=== PATIENT | female | born 1970 | race Caucasian/White ===

== ENCOUNTER 2017-04-06 14:43 | Outpatient (CLI) | payer OTHER ==
[2017-04-06 15:37] LABS: BASOPHILS % (AUTO) 0.3 % (0-1); EOSINOPHILS # (AUTO) 0.1 X10'3 (0-0.9); EOSINOPHILS % (AUTO) 1.5 % (0-6); HEMATOCRIT 36.8 % (35.0-45.0); HEMOGLOBIN 13.1 g/dl (12.0-16.0); LYMPHOCYTES # (AUTO) 1.3 X10'3 (1.1-4.8); LYMPHOCYTES % (AUTO) 22.5 % (21-51); MEAN CORPUSCULAR HEMOGLOBIN 33.9 PG (27.0-31.0); MEAN CORPUSCULAR HGB CONC 35.7 % (33.0-36.5); MEAN PLATELET VOLUME 8.4 FL (7.4-10.4); MONOCYTES # (AUTO) 0.3 X10'3 (0-0.9); MONOCYTES % (AUTO) 5.3 % (2-12); NEUTROPHILS # (AUTO) 3.9 X10'3 (1.8-7.7); NEUTROPHILS % (AUTO) 70.4 % (42-75); PLATELET COUNT 153 X10'3 (140-440); RED BLOOD COUNT 3.88 X10'6 (4.20-5.60); RED CELL DISTRIBUTION WIDTH 11.8 % (11.5-14.5); WHITE BLOOD COUNT 5.6 X10'3 (4.5-11.0)
[2017-04-06 15:47] LABS: CLARITY,URINE SLIGHTLY CLOUDY (Clear); COLOR,URINE YELLOW (Yellow); GLUCOSE, URINE NEGATIVE (Neg); KETONES,URINE NEGATIVE (Neg); LEUKOCYTE ESTERASE ,URINE NEGATIVE (Neg); NITRITES, URINE NEGATIVE (Neg); OCCULT BLOOD,URINE NEGATIVE (Neg); PH,URINE 5.5 (4.8-8.0); PROTEIN,URINE NEGATIVE (Neg); UROBILINOGEN,URINE 0.2 E.U/dL (0.2-1.0)
[2017-04-06 15:51] LABS: UA COLLECTION TYPE CLN CATCH MIDSTREAM
[2017-04-06 15:52] LABS: MUCUS STRANDS MODERATE /LPF (Neg); SQUAMOUS EPITHELIAL CELL,UR MODERATE /LPF (FEW)
[2017-04-06 15:53] LABS: BACTERIA,URINE FEW /HPF (Neg); RBC,URINE 0-2 /HPF (0-2); WBC,URINE 0-4 /HPF (0-4)
[2017-04-06 16:02] LABS: ALANINE AMINOTRANSFERASE 24 U/L (12-78); ALBUMIN 3.6 G/DL (3.4-5.0); ALBUMIN/GLOBULIN RATIO 1.2 (1.1-1.5); ALKALINE PHOSPHATASE 48 IU/L (46-116); ANION GAP 6 (8-16); ASPARTATE AMINO TRANSFERASE 19 U/L (10-37); BILIRUBIN,TOTAL 0.6 MG/DL (0.1-1.0); BLOOD UREA NITROGEN 12 MG/DL (7-18); BUN/CREATININE RATIO 17.1 (6.6-38.0); CALCIUM 8.5 MG/DL (8.5-10.1); CHLORIDE 104 MMOL/L (99-107); CHOL/HDL RATIO 3.2 (0.00-4.99); CHOLESTEROL 161 MG/DL (0-200); GLUCOSE 92 MG/DL (70-104); HDL CHOLESTEROL 51 MG/DL (35-60); LDL CHOLESTEROL 99 MG/DL (50-100); POTASSIUM 3.5 MMOL/L (3.5-5.1); SODIUM 139 MMOL/L (135-145); TOTAL PROTEIN 6.7 G/DL (6.4-8.2); TRIGLYCERIDES 98 MG/DL (20-135); eGFR > 90 ML/MIN
[2017-04-09 08:08] LABS: VITAMIN D, 25-HYDROXY 53.2 ng/mL (30.0-100.0)
== END 2017-04-06 23:59 | disposition home or self-care (01) ==
LOC: LAB 14:43
PROVIDERS: ATTEND General Practice
DX: Z79.899 Other long term (current) drug therapy (principal)
CPT/HCPCS: 36415; 80053; 80061; 81001; 82306; 82607; 84443; 85025

== ENCOUNTER 2018-04-13 14:47 | Outpatient (CLI) | payer OTHER ==
[2018-04-13 15:43] LABS: BASOPHILS % (AUTO) 0.1 % (0-1); EOSINOPHILS # (AUTO) 0.1 X10'3 (0-0.9); HEMATOCRIT 39.6 % (35.0-45.0); HEMOGLOBIN 13.7 g/dl (12.0-16.0); LYMPHOCYTES % (AUTO) 19.1 % (21-51); MEAN CORPUSCULAR HEMOGLOBIN 33.7 PG (27.0-31.0); MEAN CORPUSCULAR HGB CONC 34.7 g/dL (33.0-36.5); MEAN CORPUSCULAR VOLUME 97.1 FL (78-98); MEAN PLATELET VOLUME 9.3 FL (7.4-10.4); MONOCYTES # (AUTO) 0.3 X10'3 (0-0.9); MONOCYTES % (AUTO) 5.3 % (2-12); NEUTROPHILS % (AUTO) 74.5 % (42-75); PLATELET COUNT 153 X10'3 (140-440); RED BLOOD COUNT 4.07 X10'6 (4.20-5.60); RED CELL DISTRIBUTION WIDTH 12.8 % (11.5-14.5); WHITE BLOOD COUNT 5.4 X10'3 (4.5-11.0)
[2018-04-13 16:02] LABS: CLARITY,URINE CLEAR (Clear); COLOR,URINE YELLOW (Yellow); GLUCOSE, URINE NEGATIVE (Neg); KETONES,URINE 15 mg/dl (Neg); LEUKOCYTE ESTERASE ,URINE NEGATIVE (Neg); NITRITES, URINE NEGATIVE (Neg); OCCULT BLOOD,URINE NEGATIVE (Neg); PROTEIN,URINE NEGATIVE (Neg); UROBILINOGEN,URINE 0.2 E.U/dL (0.2-1.0)
[2018-04-13 16:04] LABS: UA COLLECTION TYPE NON-SPECIFIED
[2018-04-13 16:08] LABS: ALANINE AMINOTRANSFERASE 26 U/L (12-78); ALBUMIN 3.8 G/DL (3.4-5.0); ALBUMIN/GLOBULIN RATIO 1.2 (1.1-1.5); ALKALINE PHOSPHATASE 43 IU/L (46-116); ANION GAP 8 (8-16); ASPARTATE AMINO TRANSFERASE 22 U/L (10-37); BILIRUBIN,TOTAL 0.7 MG/DL (0.1-1.0); BLOOD UREA NITROGEN 13 MG/DL (7-18); BUN/CREATININE RATIO 17.8 (6.6-38.0); CHLORIDE 102 MMOL/L (99-107); CHOL/HDL RATIO 3.7 (0.00-4.99); CHOLESTEROL 199 MG/DL (0-200); CREATININE 0.73 MG/DL (0.40-0.90); GLUCOSE 90 MG/DL (70-104); HDL CHOLESTEROL 54 MG/DL (35-60); LDL CHOLESTEROL 127 MG/DL (50-100); POTASSIUM 4.1 MMOL/L (3.5-5.1); SODIUM 137 MMOL/L (135-145); TOTAL CARBON DIOXIDE 27.2 MMOL/L (24-32); TOTAL PROTEIN 7.1 G/DL (6.4-8.2); TRIGLYCERIDES 127 MG/DL (20-135); eGFR 86 ML/MIN
[2018-04-16 13:18] LABS: VITAMIN D, 25-HYDROXY 45.2 ng/mL (30.0-100.0)
== END 2018-04-13 23:59 | disposition home or self-care (01) ==
LOC: LAB 14:47
PROVIDERS: ATTEND General Practice
DX: Z79.899 Other long term (current) drug therapy (principal); Z90.710 Acquired absence of both cervix and uterus
CPT/HCPCS: 36415; 80053; 80061; 81003; 82306; 82607; 84443; 85025

== ENCOUNTER 2018-06-27 15:30 | Outpatient (CLI) | payer OTHER | END 2018-06-27 23:59 | disposition home or self-care (01) | LOC: RAD 15:30 | PROVIDERS: ATTEND General Practice | DX: R22.1 Localized swelling, mass and lump, neck (principal); R56.9 Unspecified convulsions; Z90.710 Acquired absence of both cervix and uterus | CPT/HCPCS: 76882 ==

== ENCOUNTER 2018-07-18 13:23 | Outpatient (CLI) | payer OTHER | END 2018-07-18 23:59 | disposition home or self-care (01) | LOC: RAD 13:23 | PROVIDERS: ATTEND General Practice | DX: R22.1 Localized swelling, mass and lump, neck (principal); M54.2 Cervicalgia | CPT/HCPCS: 70543; A9577 ==

== ENCOUNTER → 2018-10-18 | Day surgery (SDC) | payer OTHER ==
[~2018-10-18] VITALS: Ht 165.1 cm; Wt 86.4 kg
[~2018-10-18] MED LIST: IBUP-1985 PO; LIDOcaine Viscous 15ml cup ONE; LORA10TA7 PO; MIDAZolam 5mg/5ml vial ONE; OMEP20CA11 PO; fentaNYL/PF 50MCG/1 ML 2ML syringe ONE
[2018-10-18 09:25] VITALS: BP 121/68
[2018-10-18 09:58] VITALS: BP 101/60
[2018-10-18 10:08] VITALS: BP 112/57
[2018-10-18 10:18] VITALS: BP 108/74
[2018-10-18 10:28] VITALS: BP 110/73
== END | disposition home or self-care (01) ==
LOC: GI LAB 09:19
PROVIDERS: ATTEND Internal Medicine Gastroenterology
DX: K29.70 Gastritis, unspecified, without bleeding (principal); K44.9 Diaphragmatic hernia without obstruction or gangrene; K31.89 Other diseases of stomach and duodenum; Z79.899 Other long term (current) drug therapy
CPT/HCPCS: 43239; J2250; J3010; J7040; 99152; A4620

== ENCOUNTER 2019-03-26 11:30 | Outpatient (CLI) | payer OTHER ==
[~2019-03-26 11:30] MED LIST changes: -LIDOcaine Viscous 15ml cup ONE; -MIDAZolam 5mg/5ml vial ONE; -OMEP20CA11 PO; +OMEP20CA15 PO; -fentaNYL/PF 50MCG/1 ML 2ML syringe ONE
[2019-03-26 12:54] LABS: BASOPHILS % (AUTO) 0.5 % (0-1); EOSINOPHILS % (AUTO) 0.2 % (0-6); HEMATOCRIT 41.3 % (35.0-45.0); HEMOGLOBIN 14.2 g/dl (12.0-16.0); LYMPHOCYTES # (AUTO) 1.3 X10'3 (1.1-4.8); LYMPHOCYTES % (AUTO) 18.1 % (21-51); MEAN CORPUSCULAR HEMOGLOBIN 33.1 PG (27.0-31.0); MEAN CORPUSCULAR HGB CONC 34.4 g/dL (33.0-36.5); MEAN CORPUSCULAR VOLUME 96.2 FL (78-98); MEAN PLATELET VOLUME 9.7 FL (7.4-10.4); MONOCYTES # (AUTO) 0.4 X10'3 (0-0.9); MONOCYTES % (AUTO) 5.7 % (2-12); NEUTROPHILS # (AUTO) 5.6 X10'3 (1.8-7.7); NEUTROPHILS % (AUTO) 75.5 % (42-75); PLATELET COUNT 204 X10'3 (140-440); RED BLOOD COUNT 4.29 X10'6 (4.20-5.60); RED CELL DISTRIBUTION WIDTH 12.5 % (11.5-14.5); WHITE BLOOD COUNT 7.4 X10'3 (4.5-11.0)
[2019-03-26 13:02] LABS: CLARITY,URINE CLEAR (Clear); COLOR,URINE STRAW (Yellow); GLUCOSE, URINE NEGATIVE (Neg); KETONES,URINE NEGATIVE (Neg); LEUKOCYTE ESTERASE ,URINE NEGATIVE (Neg); NITRITES, URINE NEGATIVE (Neg); OCCULT BLOOD,URINE NEGATIVE (Neg); PROTEIN,URINE NEGATIVE (Neg); UROBILINOGEN,URINE 0.2 E.U/dL (0.2-1.0)
[2019-03-26 13:06] LABS: UA COLLECTION TYPE NON-SPECIFIED
[2019-03-26 14:57] LABS: ALANINE AMINOTRANSFERASE 28 U/L (12-78); ALBUMIN/GLOBULIN RATIO 1.1 (1.1-1.5); ALKALINE PHOSPHATASE 55 IU/L (46-116); ANION GAP 12 (8-16); ASPARTATE AMINO TRANSFERASE 22 U/L (10-37); BILIRUBIN,TOTAL 0.8 MG/DL (0.1-1.0); BLOOD UREA NITROGEN 12 MG/DL (7-18); BUN/CREATININE RATIO 14.5 (6.6-38.0); CALCIUM 8.5 MG/DL (8.5-10.1); CHLORIDE 101 MMOL/L (99-107); CHOL/HDL RATIO 3.7 (0.00-4.99); CHOLESTEROL 216 MG/DL (0-200); CREATININE 0.83 MG/DL (0.40-0.90); GLUCOSE 95 MG/DL (70-104); HDL CHOLESTEROL 59 MG/DL (35-60); LDL CHOLESTEROL 141 MG/DL (50-100); POTASSIUM 3.6 MMOL/L (3.5-5.1); SODIUM 137 MMOL/L (135-145); TOTAL CARBON DIOXIDE 24.2 MMOL/L (24-32); TOTAL PROTEIN 7.7 G/DL (6.4-8.2); TRIGLYCERIDES 104 MG/DL (20-135); eGFR 74 ML/MIN
[2019-03-27 05:39] LABS: VITAMIN D, 25-HYDROXY 29.2 ng/mL (30.0-100.0)
== END 2019-03-26 23:59 | disposition home or self-care (01) ==
LOC: RAD 11:30
PROVIDERS: ATTEND General Practice
DX: N83.201 Unspecified ovarian cyst, right side (principal); Z79.899 Other long term (current) drug therapy
CPT/HCPCS: 36415; 76830; 76856; 80053; 80061; 81003; 82306; 82607; 84443; 85025

== ENCOUNTER 2019-07-11 08:50 | Outpatient (CLI) | payer OTHER | END 2019-07-11 23:59 | disposition home or self-care (01) | LOC: RAD 08:50 | PROVIDERS: ATTEND General Practice | DX: N83.201 Unspecified ovarian cyst, right side (principal) | CPT/HCPCS: 76856 ==

== ENCOUNTER → 2019-08-23 | Outpatient (CLI) | payer OTHER | END | disposition home or self-care (01) | LOC: LAB 11:02 | PROVIDERS: ATTEND Specialist | DX: N83.201 Unspecified ovarian cyst, right side (principal) | CPT/HCPCS: 36415; 86304 ==

== ENCOUNTER 2019-10-14 11:02 | Day surgery (SDC) | payer BC ==
[2019-10-09 09:33] LABS: MEAN PLATELET VOLUME 9.3 FL (7.4-10.4); MONOCYTES # (AUTO) 0.2 X10'3 (0-0.9); PRE OP HEMATOCRIT 39.4 % (35.0-45.0); RED BLOOD COUNT 3.96 X10'6 (4.20-5.60)
[2019-10-09 09:35] LABS: BASOPHILS % (AUTO) 0.5 % (0-1); EOSINOPHILS % (AUTO) 0.7 % (0-6); LYMPHOCYTES # (AUTO) 1.1 X10'3 (1.1-4.8); LYMPHOCYTES % (AUTO) 28.3 % (21-51); MEAN CORPUSCULAR HEMOGLOBIN 33.9 PG (27.0-31.0); MEAN CORPUSCULAR HGB CONC 34.1 g/dL (33.0-36.5); MEAN CORPUSCULAR VOLUME 99.4 FL (78-98); MONOCYTES % (AUTO) 5.4 % (2-12); NEUTROPHILS # (AUTO) 2.5 X10'3 (1.8-7.7); NEUTROPHILS % (AUTO) 65.1 % (42-75); PRE OP HEMOGLOBIN 13.4 g/dL (12.0-16.0); PRE OP PLATELET COUNT 154 X10'3 (140-440); RED CELL DISTRIBUTION WIDTH 13.3 % (11.5-14.5)
[2019-10-09 09:46] LABS: ALBUMIN 3.6 G/DL (3.4-5.0); ALKALINE PHOSPHATASE 54 IU/L (46-116); BLOOD UREA NITROGEN 9 MG/DL (7-18); BUN/CREATININE RATIO 11.3 (6.6-38.0); CALCIUM 8.4 MG/DL (8.5-10.1); CHLORIDE 106 MMOL/L (99-107); PRE OP ALT 53 U/L (30-65); PRE OP ANION GAP 7 (8-16); PRE OP AST 31 U/L (10-37); PRE OP BILIRUB, TOTAL 0.3 MG/DL (0.0-1.0); PRE OP GLUCOSE 82 MG/DL (70-104); PRE OP POTASSIUM 3.8 MMOL/L (3.4-5.1); PRE OP SODIUM 141 MMOL/L (135-145); TOTAL CARBON DIOXIDE 27.9 MMOL/L (24-32); TOTAL PROTEIN 7.1 G/DL (6.4-8.2); eGFR 77 ML/MIN
[2019-10-09 09:49] LABS: HCG SERUM QL NEGATIVE
[2019-10-14] VITALS (11 sets, daily range): BP systolic 106–133; BP diastolic 56–75
[~2019-10-14] VITALS: Ht 165.1 cm; Wt 83.0 kg
[~2019-10-14 11:02] MED LIST changes: +CHOL20004 PO; -IBUP-1985 PO; +LIDOcaine 2% (20mg/ml) 5ml vial ONE; -LORA10TA7 PO; +NAPR-56 PO; +SUMA100T PO; +ceFOXitin 2GM-NS 100mL ADDvant 100 ML IV ONE; +dexamethasone sod phosphate 4mg/ml inj. ONE; +famotidine 20mg tablet PO ONE; +glycopyrrolate 0.2mg/ml inj ONE; +neostigmine methylsulfate 1 MG/ML 10ml vial ONE; +ondansetron/PF 4mg/2ml inj ONE; +propofol inj 20 ML IV ONE; +ringers solution, lacted 1,000 ML IV SCH; +rocuronium 10mg/ml inj IV ONE
[2019-10-14] MEDS ORDERED: ringers solution, lacted 1,000 ML IV SCH (11:38)
[2019-10-14] MEDS ORDERED: ondansetron/PF 4mg/2ml inj IV PRN (11:40)
[2019-10-14] MEDS ORDERED: labetalol 20mg/4ml (5mg/ml) syringe IV PRN (11:40)
[2019-10-14] MEDS ORDERED: hydrALAZINE 20mg/ml inj. IV PRN (11:40)
[2019-10-14] MEDS ORDERED: morphine 2 MG/ML inj. syringe IV PRN (11:40)
[2019-10-14] MEDS ORDERED: fentaNYL/PF 50MCG/1 ML 2ML syringe IV PRN (11:40)
[2019-10-14] MEDS ORDERED: sevoflurane 250ml liquid IH ONE (11:50)
[2019-10-14] MEDS ORDERED: fentaNYL/PF 50MCG/1 ML 2ML syringe ONE (11:57)
[2019-10-14] MEDS ORDERED: midazolam 2 mg/2 ml injection ONE (11:57)
--- NOTE | 2019-10-14 12:40 | NUR ---
Received from OR via BED , accompanied by Anesthesiologist DR DANGELO and report given by Anesthesiolgist. PATIENT WAKING UP, DENIES, V/S WNL, NEUROVASCULAR CHECKS INTACT, 20G PIV RUE, SCD ON, LAP SIGHTS OF ABDOMEN CDI AND WITH PERIPAD WITH SCANT DRAINAGE CDI.
[2019-10-14] MEDS: fentaNYL/PF 50MCG/1 ML 2ML syringe IV PRN ×2 (12:53→12:58)
[2019-10-14] MEDS: morphine 4 MG/ML inj SYRINge IV PRN ×2 (13:09→13:41)
--- NOTE | 2019-10-14 14:10 | NUR ---
PATIENT A&OX4, STATES PAIN 3-4/10, V/S WNL, NEUROVASCULAR CHECKS INTACT, 20G PIV RUE D/C, SCD OFF, LAP SIGHTS OF ABDOMEN CDI AND WITH PERIPAD WITH SCANT DRAINAGE CDI. I HAVE REVIEWED D/C INSTRUCTIONS WITH PATIENT AND FAMILY AND THEY HAVE VERBALIZED UNDERSTANDING. PATIENT D/C HOME WITH ALL BELONGINGS AND FAMILY GAVE TRANSPORT HOME. I CONFIRMED W/ DR TOVAR WHO STATED PATIENT WAS OK TO D/C WITHOUT VOIDING
== END 2019-10-14 14:10 | disposition home or self-care (01) ==
LOC: PAS 11:02
PROVIDERS: ATTEND Specialist
DX: N83.201 Unspecified ovarian cyst, right side (principal); N83.11 Corpus luteum cyst of right ovary; G43.909 Migraine, unspecified, not intractable, without status migrainosus; E66.9 Obesity, unspecified; Z68.30 Body mass index [BMI] 30.0-30.9, adult; Z79.899 Other long term (current) drug therapy; Z11.59 Encounter for screening for other viral diseases; Z90.710 Acquired absence of both cervix and uterus
CPT/HCPCS: 36415; 58661; 80053; 82948; 84703; 85025; 86885; 86900; 86901; J0694; J1100; J2001; J2250; J2270; J2405; J2704; J2710; J3010; J7120; U0003; A4618; A7000; J3490

== ENCOUNTER 2020-03-23 14:15 | Outpatient (CLI) | payer BC ==
[~2020-03-23 14:15] MED LIST changes: -LIDOcaine 2% (20mg/ml) 5ml vial ONE; -ceFOXitin 2GM-NS 100mL ADDvant 100 ML IV ONE; -dexamethasone sod phosphate 4mg/ml inj. ONE; -famotidine 20mg tablet PO ONE; -glycopyrrolate 0.2mg/ml inj ONE; -neostigmine methylsulfate 1 MG/ML 10ml vial ONE; -ondansetron/PF 4mg/2ml inj ONE; -propofol inj 20 ML IV ONE; -ringers solution, lacted 1,000 ML IV SCH; -rocuronium 10mg/ml inj IV ONE
[2020-03-23 14:57] LABS: COLOR,URINE YELLOW (Yellow); GLUCOSE, URINE NEGATIVE (Neg); KETONES,URINE NEGATIVE (Neg); LEUKOCYTE ESTERASE ,URINE NEGATIVE (Neg); NITRITES, URINE NEGATIVE (Neg); OCCULT BLOOD,URINE NEGATIVE (Neg); PH,URINE 6.5 (4.8-8.0); PROTEIN,URINE NEGATIVE (Neg); UROBILINOGEN,URINE 0.2 E.U/dL (0.2-1.0)
[2020-03-23 14:57] LABS: BASOPHILS % (AUTO) 0.3 % (0-1); EOSINOPHILS % (AUTO) 0.4 % (0-6); HEMATOCRIT 39.8 % (35.0-45.0); HEMOGLOBIN 13.4 g/dl (12.0-16.0); LYMPHOCYTES # (AUTO) 1.2 X10'3 (1.1-4.8); LYMPHOCYTES % (AUTO) 15.4 % (21-51); MEAN CORPUSCULAR HGB CONC 33.8 g/dL (33.0-36.5); MEAN CORPUSCULAR VOLUME 97.7 FL (78-98); MONOCYTES # (AUTO) 0.3 X10'3 (0-0.9); MONOCYTES % (AUTO) 4.4 % (2-12); NEUTROPHILS # (AUTO) 6.2 X10'3 (1.8-7.7); NEUTROPHILS % (AUTO) 79.5 % (42-75); PLATELET COUNT 195 X10'3 (140-440); RED BLOOD COUNT 4.07 X10'6 (4.20-5.60); RED CELL DISTRIBUTION WIDTH 12.9 % (11.5-14.5); WHITE BLOOD COUNT 7.8 X10'3 (4.5-11.0)
[2020-03-23 15:02] LABS: CLARITY,URINE SLIGHTLY CLOUDY (Clear)
[2020-03-23 15:03] LABS: BACTERIA,URINE FEW /HPF (Neg); MUCUS STRANDS FEW /LPF (Neg); RBC,URINE 0-2 /HPF (0-2); SQUAMOUS EPITHELIAL CELL,UR FEW /LPF (FEW); WBC,URINE 0-4 /HPF (0-4)
[2020-03-23 15:10] LABS: UA COLLECTION TYPE CLN CATCH MIDSTREAM
[2020-03-23 15:20] LABS: ALANINE AMINOTRANSFERASE 24 U/L (12-78); ALBUMIN 3.9 G/DL (3.4-5.0); ALBUMIN/GLOBULIN RATIO 1.1 (1.1-1.5); ALKALINE PHOSPHATASE 55 IU/L (46-116); ANION GAP 8 (8-16); ASPARTATE AMINO TRANSFERASE 18 U/L (10-37); BILIRUBIN,TOTAL 0.5 MG/DL (0.1-1.0); BLOOD UREA NITROGEN 11 MG/DL (7-18); BUN/CREATININE RATIO 13.4 (6.6-38.0); CALCIUM 8.5 MG/DL (8.5-10.1); CHLORIDE 101 MMOL/L (99-107); CHOL/HDL RATIO 3.1 (0.00-4.99); CHOLESTEROL 191 MG/DL (0-200); CREATININE 0.82 MG/DL (0.40-0.90); GLUCOSE 97 MG/DL (70-104); HDL CHOLESTEROL 62 MG/DL (35-60); LDL CHOLESTEROL 112 MG/DL (50-100); SODIUM 137 MMOL/L (135-145); TOTAL CARBON DIOXIDE 27.7 MMOL/L (24-32); TOTAL PROTEIN 7.3 G/DL (6.4-8.2); TRIGLYCERIDES 132 MG/DL (20-135); eGFR 75 ML/MIN
== END 2020-03-23 23:59 | disposition home or self-care (01) ==
LOC: RAD 14:15
PROVIDERS: ATTEND General Practice
DX: K21.9 Gastro-esophageal reflux disease without esophagitis (principal); E55.9 Vitamin D deficiency, unspecified; E78.5 Hyperlipidemia, unspecified; Z79.899 Other long term (current) drug therapy
CPT/HCPCS: 36415; 80053; 80061; 81001; 82306; 82607; 84443; 85025

== ENCOUNTER 2020-12-04 01:21 | Emergency (ER) | payer BC ==
[~2020-12-04] VITALS: Ht 165.1 cm; Wt 85.3 kg
[2020-12-04 01:30] VITALS: BP 129/83
[2020-12-04] MEDS ORDERED: phenazopyridine 100mg tablet PO ONE (02:00)
[2020-12-04] MEDS ORDERED: cephalexin 250mg capsule PO ONE (02:00)
[2020-12-04] MEDS ORDERED: PHEN-786 PO (02:02)
[2020-12-04] MEDS ORDERED: CEPH-585 PO (02:02)
[2020-12-04 02:31] LABS: CLARITY,URINE SLIGHTLY CLOUDY (Clear); COLOR,URINE YELLOW (Yellow); GLUCOSE, URINE NEGATIVE (Neg); KETONES,URINE NEGATIVE (Neg); LEUKOCYTE ESTERASE ,URINE NEGATIVE (Neg); NITRITES, URINE NEGATIVE (Neg); OCCULT BLOOD,URINE NEGATIVE (Neg); PROTEIN,URINE NEGATIVE (Neg); UA COLLECTION TYPE CLN CATCH MIDSTREAM; UROBILINOGEN,URINE 0.2 E.U/dL (0.2-1.0)
[2020-12-04 02:43] LABS: BACTERIA,URINE FEW /HPF (Neg); MUCUS STRANDS MODERATE /LPF (Neg); RBC,URINE NONE SEEN /HPF (0-2); WBC,URINE 0-4 /HPF (0-4)
[2020-12-04 02:48] LABS: SQUAMOUS EPITHELIAL CELL,UR MANY /LPF (FEW)
== END 2020-12-04 03:15 | disposition home or self-care (01) ==
LOC: ER 01:22
DX: N39.0 Urinary tract infection, site not specified (principal); N32.89 Other specified disorders of bladder; K21.9 Gastro-esophageal reflux disease without esophagitis; Z90.710 Acquired absence of both cervix and uterus; Z72.89 Other problems related to lifestyle; Z79.899 Other long term (current) drug therapy
CPT/HCPCS: 81001; 99283

== ENCOUNTER 2021-02-14 23:26 | Emergency (ER) | payer BC ==
[~2021-02-14] VITALS: Ht 165.1 cm; Wt 88.6 kg
[~2021-02-14 23:26] MED LIST changes: +CEPH-585 PO; +PHEN-786 PO
[2021-02-14] MEDS ORDERED: naproxen 500mg tablet PO ONE (23:30)
[2021-02-14] MEDS ORDERED: SUMAtriptan 25 MG tablet PO ONE (23:30)
[2021-02-15 01:08] VITALS: BP 108/61
== END 2021-02-15 01:09 | disposition home or self-care (01) ==
LOC: ER 23:26 → EEVIPCON 23:26 → ER 02-15 01:09
DX: G43.909 Migraine, unspecified, not intractable, without status migrainosus (principal); K21.9 Gastro-esophageal reflux disease without esophagitis; Z79.899 Other long term (current) drug therapy
CPT/HCPCS: 99283

== ENCOUNTER 2021-03-24 12:30 | Outpatient (CLI) | payer BC ==
[2021-03-24 13:23] LABS: CLARITY,URINE CLEAR (Clear); GLUCOSE, URINE NEGATIVE (Neg); KETONES,URINE NEGATIVE (Neg); LEUKOCYTE ESTERASE ,URINE NEGATIVE (Neg); NITRITES, URINE NEGATIVE (Neg); OCCULT BLOOD,URINE NEGATIVE (Neg); PROTEIN,URINE NEGATIVE (Neg); UROBILINOGEN,URINE 0.2 E.U/dL (0.2-1.0)
[2021-03-24 13:24] LABS: COLOR,URINE STRAW (Yellow); UA COLLECTION TYPE CLN CATCH MIDSTREAM
[2021-03-24 13:43] LABS: BASOPHILS % (AUTO) 0.3 % (0-1); EOSINOPHILS % (AUTO) 0.3 % (0-6); HEMATOCRIT 41.7 % (35.0-45.0); HEMOGLOBIN 14.2 g/dl (12.0-16.0); LYMPHOCYTES # (AUTO) 1.2 X10'3 (1.1-4.8); LYMPHOCYTES % (AUTO) 14.1 % (21-51); MEAN CORPUSCULAR HEMOGLOBIN 32.8 PG (27.0-31.0); MEAN CORPUSCULAR VOLUME 96.4 FL (78-98); MEAN PLATELET VOLUME 8.9 FL (7.4-10.4); MONOCYTES # (AUTO) 0.4 X10'3 (0-0.9); MONOCYTES % (AUTO) 4.1 % (2-12); NEUTROPHILS # (AUTO) 7.1 X10'3 (1.8-7.7); NEUTROPHILS % (AUTO) 81.2 % (42-75); PLATELET COUNT 233 X10'3 (140-440); RED BLOOD COUNT 4.33 X10'6 (4.20-5.60); RED CELL DISTRIBUTION WIDTH 13.1 % (11.5-14.5); WHITE BLOOD COUNT 8.7 X10'3 (4.5-11.0)
[2021-03-24 13:58] LABS: ALANINE AMINOTRANSFERASE 48 U/L (12-78); ALBUMIN 4.2 G/DL (3.4-5.0); ALBUMIN/GLOBULIN RATIO 1.2 (1.1-1.5); ALKALINE PHOSPHATASE 68 IU/L (46-116); ANION GAP 10 (8-16); ASPARTATE AMINO TRANSFERASE 37 U/L (10-37); BILIRUBIN,TOTAL 0.6 MG/DL (0.1-1.0); BLOOD UREA NITROGEN 12 MG/DL (7-18); BUN/CREATININE RATIO 15.6 (6.6-38.0); CALCIUM 9.3 MG/DL (8.5-10.1); CHLORIDE 101 MMOL/L (99-107); CHOL/HDL RATIO 4.1 (0.00-4.99); CHOLESTEROL 230 MG/DL (0-200); CREATININE 0.77 MG/DL (0.40-0.90); GLUCOSE 101 MG/DL (70-104); HDL CHOLESTEROL 56 MG/DL (35-60); LDL CHOLESTEROL 122 MG/DL (50-100); POTASSIUM 3.8 MMOL/L (3.5-5.1); SODIUM 138 MMOL/L (135-145); TOTAL CARBON DIOXIDE 26.6 MMOL/L (24-32); TOTAL PROTEIN 7.6 G/DL (6.4-8.2); TRIGLYCERIDES 198 MG/DL (20-135); eGFR 80 ML/MIN
== END 2021-03-24 23:59 | disposition home or self-care (01) ==
LOC: LAB 12:30
PROVIDERS: ATTEND General Practice
DX: E78.5 Hyperlipidemia, unspecified (principal); E55.9 Vitamin D deficiency, unspecified; Z79.899 Other long term (current) drug therapy
CPT/HCPCS: 36415; 80053; 80061; 81003; 82306; 82607; 84443; 85025

== ENCOUNTER 2021-10-20 10:24 | Outpatient (CLI) | payer BC ==
[2021-10-20 11:24] LABS: HEMOGLOBIN A1C 4.8 % (4.5-6.2)
[2021-10-20 11:30] LABS: CHOL/HDL RATIO 4.3 (0.00-4.99); CHOLESTEROL 249 MG/DL (0-200); HDL CHOLESTEROL 58 MG/DL (35-60); LDL CHOLESTEROL 153 MG/DL (50-100); TRIGLYCERIDES 230 MG/DL (20-135)
== END 2021-10-20 23:59 | disposition home or self-care (01) ==
LOC: LAB 10:24
PROVIDERS: ATTEND General Practice
DX: E78.5 Hyperlipidemia, unspecified (principal); R73.09 Other abnormal glucose
CPT/HCPCS: 36415; 80061; 83036

== ENCOUNTER 2022-01-18 18:15 | Outpatient (CLI) | payer BC ==
[~2022-01-18] VITALS: Ht 165.1 cm; Wt 84.0 kg
[~2022-01-18 18:15] MED LIST changes: -CEPH-585 PO
[2022-01-18 18:23] VITALS: BP 115/76
== END 2022-01-18 23:59 | disposition home or self-care (01) ==
LOC: CANPRECLI → LAB 18:16 → ER 18:16 → LAB 20:09
DX: Z53.9 Procedure and treatment not carried out, unspecified reason (principal)
CPT/HCPCS: 36415; 80061

== ENCOUNTER 2022-01-18 18:16 | Outpatient (CLI) | payer BC ==
[2022-01-18 20:48] LABS: CHOL/HDL RATIO 2.2 (0.00-4.99); CHOLESTEROL 112 MG/DL (0-200); HDL CHOLESTEROL 51 MG/DL (35-60); LDL CHOLESTEROL 50 MG/DL (50-100); TRIGLYCERIDES 71 MG/DL (20-135)
== END 2022-01-18 23:59 | disposition home or self-care (01) ==
LOC: LAB 18:16
PROVIDERS: ATTEND General Practice
DX: E78.5 Hyperlipidemia, unspecified (principal)
CPT/HCPCS: 36415; 80061

== ENCOUNTER 2022-03-18 12:03 | Outpatient (CLI) | payer BC ==
[2022-03-18 12:52] LABS: CLARITY,URINE CLEAR (Clear); COLOR,URINE YELLOW (Yellow); GLUCOSE, URINE NEGATIVE (Neg); KETONES,URINE NEGATIVE (Neg); LEUKOCYTE ESTERASE ,URINE NEGATIVE (Neg); NITRITES, URINE NEGATIVE (Neg); OCCULT BLOOD,URINE NEGATIVE (Neg); PROTEIN,URINE NEGATIVE (Neg); UROBILINOGEN,URINE 0.2 E.U/dL (0.2-1.0)
[2022-03-18 12:59] LABS: BASOPHILS % (AUTO) 0.4 % (0-1); EOSINOPHILS % (AUTO) 0.7 % (0-6); HEMATOCRIT 41.2 % (35.0-45.0); HEMOGLOBIN 13.5 g/dl (12.0-16.0); LYMPHOCYTES # (AUTO) 1.2 X10'3 (1.1-4.8); MEAN CORPUSCULAR HEMOGLOBIN 31.9 PG (27.0-31.0); MEAN CORPUSCULAR HGB CONC 32.9 g/dL (33.0-36.5); MEAN CORPUSCULAR VOLUME 97.1 FL (78-98); MEAN PLATELET VOLUME 9.7 FL (7.4-10.4); MONOCYTES # (AUTO) 0.4 X10'3 (0-0.9); MONOCYTES % (AUTO) 5.8 % (2-12); NEUTROPHILS # (AUTO) 4.4 X10'3 (1.8-7.7); NEUTROPHILS % (AUTO) 73.1 % (42-75); PLATELET COUNT 162 X10'3 (140-440); RED BLOOD COUNT 4.24 X10'6 (4.20-5.60); RED CELL DISTRIBUTION WIDTH 13.8 % (11.5-14.5); WHITE BLOOD COUNT 6.1 X10'3 (4.5-11.0)
[2022-03-18 13:09] LABS: UA COLLECTION TYPE CLN CATCH MIDSTREAM
[2022-03-18 13:16] LABS: ALANINE AMINOTRANSFERASE 32 U/L (12-78); ALBUMIN 4.1 G/DL (3.4-5.0); ALBUMIN/GLOBULIN RATIO 1.2 (1.1-1.5); ALKALINE PHOSPHATASE 88 IU/L (46-116); ANION GAP 7 (8-16); ASPARTATE AMINO TRANSFERASE 28 U/L (10-37); BILIRUBIN,TOTAL 0.6 MG/DL (0.1-1.0); BLOOD UREA NITROGEN 11 MG/DL (7-18); CALCIUM 8.9 MG/DL (8.5-10.1); CHLORIDE 102 MMOL/L (99-107); CHOL/HDL RATIO 2.3 (0.00-4.99); CHOLESTEROL 138 MG/DL (0-200); CREATININE 0.92 MG/DL (0.40-0.90); GLUCOSE 82 MG/DL (70-104); HDL CHOLESTEROL 61 MG/DL (35-60); LDL CHOLESTEROL 67 MG/DL (50-100); POTASSIUM 3.9 MMOL/L (3.5-5.1); SODIUM 139 MMOL/L (135-145); TOTAL CARBON DIOXIDE 30.1 MMOL/L (24-32); TOTAL PROTEIN 7.5 G/DL (6.4-8.2); TRIGLYCERIDES 55 MG/DL (20-135); eGFR 65 ML/MIN
[2022-03-18 13:31] LABS: HEMOGLOBIN A1C 5.2 % (4.5-6.2)
== END 2022-03-18 23:59 | disposition home or self-care (01) ==
LOC: LAB 12:03
PROVIDERS: ATTEND General Practice
DX: E55.9 Vitamin D deficiency, unspecified (principal); E78.5 Hyperlipidemia, unspecified; R73.09 Other abnormal glucose; Z79.899 Other long term (current) drug therapy
CPT/HCPCS: 36415; 80053; 80061; 81003; 82306; 82607; 83036; 84443; 85025

== ENCOUNTER 2022-05-12 09:22 | Day surgery (SDC) | payer BC ==
[~2022-05-12] VITALS: Ht 165.1 cm; Wt 86.3 kg
[2022-05-12] MEDS ORDERED: MIDAZolam 1 MG/ML 5ML VIAL ONE (09:24)
[2022-05-12] MEDS ORDERED: fentaNYL/PF 50MCG/1 ML 2ML syringe ONE (09:24)
[2022-05-12 09:40] VITALS: BP 128/73
[2022-05-12] MEDS ORDERED: BUPR-72 PO (09:45)
[2022-05-12] MEDS ORDERED: ROSU10TA28 PO (09:45)
[2022-05-12 12:15] VITALS: BP 116/70
[2022-05-12 12:25] VITALS: BP 112/72
[2022-05-12 12:35] VITALS: BP 111/68
[2022-05-12 12:45] VITALS: BP 118/73
== END 2022-05-12 12:50 | disposition home or self-care (01) ==
LOC: GI LAB 09:22
PROVIDERS: ATTEND Internal Medicine Gastroenterology
DX: Z12.11 Encounter for screening for malignant neoplasm of colon (principal); J45.909 Unspecified asthma, uncomplicated; G43.909 Migraine, unspecified, not intractable, without status migrainosus; Z72.89 Other problems related to lifestyle; Z79.899 Other long term (current) drug therapy; Z83.71 Family history of colonic polyps; Z80.0 Family history of malignant neoplasm of digestive organs; Z87.19 Personal history of other diseases of the digestive system
CPT/HCPCS: 45378; 99152; 99153; J2250; J3010; J7030; Z7512; A4620

== ENCOUNTER 2023-04-13 12:50 | Outpatient (CLI) | payer BC ==
[~2023-04-13 12:50] MED LIST changes: +BUPR-72 PO; -NAPR-56 PO; -PHEN-786 PO; +ROSU10TA28 PO; -SUMA100T PO
[2023-04-13 13:55] LABS: BASOPHILS % (AUTO) 0.4 % (0-1); EOSINOPHILS % (AUTO) 0.6 % (0-6); HEMATOCRIT 41.6 % (35.0-45.0); HEMOGLOBIN 14.1 g/dl (12.0-16.0); LYMPHOCYTES # (AUTO) 1.5 X10'3 (1.1-4.8); LYMPHOCYTES % (AUTO) 24.9 % (21-51); MEAN CORPUSCULAR HEMOGLOBIN 32.4 PG (27.0-31.0); MEAN CORPUSCULAR VOLUME 95.4 FL (78-98); MEAN PLATELET VOLUME 10.3 FL (7.4-10.4); MONOCYTES # (AUTO) 0.3 X10'3 (0-0.9); MONOCYTES % (AUTO) 4.4 % (2-12); NEUTROPHILS # (AUTO) 4.1 X10'3 (1.8-7.7); NEUTROPHILS % (AUTO) 69.7 % (42-75); PLATELET COUNT 142 X10'3 (140-440); RED BLOOD COUNT 4.36 X10'6 (4.20-5.60); RED CELL DISTRIBUTION WIDTH 12.6 % (11.5-14.5); WHITE BLOOD COUNT 5.9 X10'3 (4.5-11.0)
[2023-04-13 14:20] LABS: ALANINE AMINOTRANSFERASE 25 U/L (12-78); ALBUMIN 4.3 G/DL (3.4-5.0); ALBUMIN/GLOBULIN RATIO 1.3 (1.1-1.5); ALKALINE PHOSPHATASE 60 IU/L (46-116); ANION GAP 12 (8-16); ASPARTATE AMINO TRANSFERASE 20 U/L (10-37); BILIRUBIN,TOTAL 0.7 MG/DL (0.1-1.0); BLOOD UREA NITROGEN 14 MG/DL (7-18); BUN/CREATININE RATIO 18.4 (10.0-20.0); CALCIUM 8.9 MG/DL (8.5-10.1); CHLORIDE 104 MMOL/L (99-107); CHOL/HDL RATIO 2.4 (0.00-4.99); CHOLESTEROL 136 MG/DL (0-200); CREATININE 0.76 MG/DL (0.40-0.90); GLUCOSE 58 MG/DL (70-104); HDL CHOLESTEROL 56 MG/DL (35-60); LDL CHOLESTEROL 61 MG/DL (50-100); POTASSIUM 3.5 MMOL/L (3.5-5.1); SODIUM 142 MMOL/L (135-145); THYROID STIMULATING HORMONE 1.71 ulU/ml (0.34-4.50); TOTAL CARBON DIOXIDE 26.4 MMOL/L (24-32); TOTAL PROTEIN 7.5 G/DL (6.4-8.2); TRIGLYCERIDES 32 MG/DL (20-135); eGFR 81 ML/MIN
[2023-04-13 14:23] LABS: BILIRUBIN,URINE SMALL (Neg); CLARITY,URINE SLIGHTLY CLOUDY (Clear); COLOR,URINE YELLOW (Yellow); GLUCOSE, URINE NEGATIVE (Neg); KETONES,URINE >=80 mg/dl (Neg); LEUKOCYTE ESTERASE ,URINE NEGATIVE (Neg); NITRITES, URINE NEGATIVE (Neg); OCCULT BLOOD,URINE NEGATIVE (Neg); PH,URINE 5.5 (4.8-8.0); PROTEIN,URINE NEGATIVE (Neg); UROBILINOGEN,URINE 0.2 E.U/dL (0.2-1.0)
[2023-04-13 14:43] LABS: UA COLLECTION TYPE CLN CATCH MIDSTREAM
[2023-04-13 14:44] LABS: BACTERIA,URINE 1+ /HPF (Neg); MUCUS STRANDS MANY /LPF (Neg); RBC,URINE 0-2 /HPF (0-2); SQUAMOUS EPITHELIAL CELL,UR FEW /LPF (FEW); WBC,URINE 0-4 /HPF (0-4)
== END 2023-04-13 23:59 | disposition home or self-care (01) ==
LOC: RAD 12:50
PROVIDERS: ATTEND Registered Nurse
DX: Z00.00 Encounter for general adult medical examination without abnormal findings (principal); M25.552 Pain in left hip; G43.909 Migraine, unspecified, not intractable, without status migrainosus; E78.5 Hyperlipidemia, unspecified; K21.9 Gastro-esophageal reflux disease without esophagitis; K44.9 Diaphragmatic hernia without obstruction or gangrene; E55.9 Vitamin D deficiency, unspecified; N95.1 Menopausal and female climacteric states; Z71.89 Other specified counseling
CPT/HCPCS: 36415; 73502; 80053; 80061; 81001; 82306; 82607; 82670; 82746; 84443; 85025

== ENCOUNTER 2023-05-02 12:46 | Outpatient (CLI) | payer BC | END 2023-05-02 23:59 | disposition home or self-care (01) | LOC: RAD 12:46 | PROVIDERS: ATTEND Registered Nurse | DX: M25.552 Pain in left hip (principal); Z90.89 Acquired absence of other organs; Z90.711 Acquired absence of uterus with remaining cervical stump | CPT/HCPCS: 72192 ==

== ENCOUNTER 2024-05-02 13:53 | Outpatient (CLI) | payer BC ==
[~2024-05-02 13:53] MED LIST changes: -ROSU10TA28 PO; +ROSU10TA72 PO
[2024-05-02 14:45] LABS: BILIRUBIN,URINE NEGATIVE (Neg); CLARITY,URINE CLEAR (Clear); COLOR,URINE YELLOW (Yellow); GLUCOSE, URINE NEGATIVE (Neg); KETONES,URINE 40 mg/dl (Neg); LEUKOCYTE ESTERASE ,URINE NEGATIVE (Neg); NITRITES, URINE NEGATIVE (Neg); OCCULT BLOOD,URINE NEGATIVE (Neg); PH,URINE 7.5 (4.8-8.0); PROTEIN,URINE NEGATIVE (Neg); UROBILINOGEN,URINE 0.2 E.U/dL (0.2-1.0)
[2024-05-02 14:52] LABS: UA COLLECTION TYPE CLN CATCH MIDSTREAM
[2024-05-02 15:26] LABS: ALANINE AMINOTRANSFERASE 48 U/L (12-78); ALBUMIN 4.4 G/DL (3.4-5.0); ALBUMIN/GLOBULIN RATIO 1.4 (1.1-1.5); ALKALINE PHOSPHATASE 73 IU/L (46-116); ANION GAP 8 (8-16); ASPARTATE AMINO TRANSFERASE 38 U/L (10-37); BASOPHILS % (AUTO) 0.3 % (0-1); BILIRUBIN,TOTAL 0.8 MG/DL (0.1-1.0); BLOOD UREA NITROGEN 8 MG/DL (7-18); BUN/CREATININE RATIO 11.9 (10.0-20.0); CALCIUM 9.1 MG/DL (8.5-10.1); CHLORIDE 101 MMOL/L (99-107); CHOL/HDL RATIO 1.8 (0.00-4.99); CHOLESTEROL 170 MG/DL (0-200); CREATININE 0.67 MG/DL (0.40-0.90); EOSINOPHILS % (AUTO) 0.1 % (0-6); GLUCOSE 80 MG/DL (70-104); HDL CHOLESTEROL 96 MG/DL (35-60); HEMATOCRIT 41.7 % (35.0-45.0); HEMOGLOBIN 14.2 g/dl (12.0-16.0); LDL CHOLESTEROL 58 MG/DL (50-100); LYMPHOCYTES # (AUTO) 0.9 X10'3 (1.1-4.8); LYMPHOCYTES % (AUTO) 15.3 % (21-51); MEAN CORPUSCULAR HEMOGLOBIN 32.3 PG (27.0-31.0); MEAN CORPUSCULAR VOLUME 94.9 FL (78-98); MEAN PLATELET VOLUME 9.4 FL (7.4-10.4); MONOCYTES # (AUTO) 0.3 X10'3 (0-0.9); MONOCYTES % (AUTO) 4.5 % (2-12); NEUTROPHILS # (AUTO) 4.7 X10'3 (1.8-7.7); NEUTROPHILS % (AUTO) 79.8 % (42-75); PLATELET COUNT 180 X10'3 (140-440); POTASSIUM 4.1 MMOL/L (3.5-5.1); RED CELL DISTRIBUTION WIDTH 13.8 % (11.5-14.5); SODIUM 139 MMOL/L (135-145); THYROID STIMULATING HORMONE 1.41 ulU/ml (0.34-4.50); TOTAL CARBON DIOXIDE 30.5 MMOL/L (24-32); TOTAL PROTEIN 7.5 G/DL (6.4-8.2); TRIGLYCERIDES 35 MG/DL (20-135); WHITE BLOOD COUNT 5.8 X10'3 (4.5-11.0); eGFR > 90 ML/MIN
[2024-05-04 08:11] LABS: ESTRADIOL 34.2 pg/mL (.); FOLATE SERUM(FOLIC) 9.4 ng/mL (>3.0)
== END 2024-05-02 23:59 | disposition home or self-care (01) ==
LOC: RAD 13:53
PROVIDERS: ATTEND Registered Nurse
DX: Z00.00 Encounter for general adult medical examination without abnormal findings (principal); G43.909 Migraine, unspecified, not intractable, without status migrainosus; E78.5 Hyperlipidemia, unspecified; E55.9 Vitamin D deficiency, unspecified; K21.9 Gastro-esophageal reflux disease without esophagitis; K44.9 Diaphragmatic hernia without obstruction or gangrene; E59 Dietary selenium deficiency; M25.552 Pain in left hip; N95.1 Menopausal and female climacteric states
CPT/HCPCS: 36415; 80053; 80061; 81003; 82306; 82607; 82670; 82679; 82746; 84443; 85025

== ENCOUNTER 2024-07-22 05:47 | Day surgery (SDC) | payer BC ==
--- NOTE | 2024-07-18 11:15 | ELECTROCARDIOGRAPH REPORT ---
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 ZAHRAA Cee Measurements Intervals [place] Rate: 76 P: 65 WV: 162 QRS: 85 QRSD: 86 T: 70 QT: 386 QTc: 435 Interpretive Statements Sinus rhythm Borderline T abnormalities, anterior leads Electronically Signed On 07-20-2024 15:06:[address] ZAHRAA Cee Please click the below link to view image of tracing.
[2024-07-18 11:16] LABS: BASOPHILS % (AUTO) 0.7 % (0-1); EOSINOPHILS % (AUTO) 0.8 % (0-6); LYMPHOCYTES # (AUTO) 1.3 X10'3 (1.1-4.8); LYMPHOCYTES % (AUTO) 28.9 % (21-51); MEAN CORPUSCULAR HEMOGLOBIN 33.1 PG (27.0-31.0); MEAN CORPUSCULAR VOLUME 94.6 FL (78-98); MEAN PLATELET VOLUME 9.5 FL (7.4-10.4); MONOCYTES # (AUTO) 0.3 X10'3 (0-0.9); NEUTROPHILS # (AUTO) 2.8 X10'3 (1.8-7.7); NEUTROPHILS % (AUTO) 63.6 % (42-75); PRE OP HEMATOCRIT 40.1 % (35.0-45.0); PRE OP PLATELET COUNT 125 X10'3 (140-440); PRE OP WHITE BLOOD COUNT 4.4 10'3 (4.8-10.8); RED BLOOD COUNT 4.23 X10'6 (4.20-5.60); RED CELL DISTRIBUTION WIDTH 13.8 % (11.5-14.5)
[2024-07-18 11:31] LABS: ALBUMIN 3.8 G/DL (3.4-5.0); ALBUMIN/GLOBULIN RATIO 1.3 (1.1-1.5); ALKALINE PHOSPHATASE 62 IU/L (46-116); BLOOD UREA NITROGEN 10 MG/DL (7-18); BUN/CREATININE RATIO 13.7 (10.0-20.0); CALCIUM 8.9 MG/DL (8.5-10.1); CHLORIDE 106 MMOL/L (99-107); CREATININE 0.73 MG/DL (0.40-0.90); PRE OP ALT 47 U/L (30-65); PRE OP ANION GAP 6 (8-16); PRE OP AST 23 U/L (10-37); PRE OP BILIRUB, TOTAL 0.5 MG/DL (0.0-1.0); PRE OP GLUCOSE 94 MG/DL (70-104); PRE OP POTASSIUM 3.8 MMOL/L (3.4-5.1); PRE OP SODIUM 143 MMOL/L (135-145); TOTAL CARBON DIOXIDE 30.9 MMOL/L (24-32); TOTAL PROTEIN 6.7 G/DL (6.4-8.2); eGFR 84 ML/MIN
[~2024-07-22] VITALS: Ht 165.1 cm; Wt 77.1 kg
[~2024-07-22 05:47] MED LIST changes: -BUPR-72 PO; -CHOL20004 PO; +ONDA-243 PO; +SEMA2PEN SUBCUT; +SUMA100T16 PO
[2024-07-22 05:50] VITALS: BP 122/77; PULSE 73; RESP 16; TEMP 98.1; O2SAT 100
[2024-07-22] MEDS: ceFAZolin 2gm in dextrose, iso 50 ML IV ONE (06:26)
[2024-07-22] MEDS: famotidine 20mg tablet PO ONE (06:26)
[2024-07-22] MEDS: ringers solution, lacted 1,000 ML IV SCH (06:26)
[2024-07-22] MEDS ORDERED: LIDOcaine 2% (20mg/ml) 5ml vial ONE (06:55)
[2024-07-22] MEDS ORDERED: BUPIVAcaine/PF 2.5mg/ml (0.25%) 10ml vial ONE (06:55)
[2024-07-22] MEDS ORDERED: ondansetron/PF 4mg/2ml inj IV PRN (07:50)
[2024-07-22] MEDS ORDERED: ringers solution, lacted 1,000 ML IV SCH (07:50)
[2024-07-22] MEDS ORDERED: midazolam 1 mg/ML 2ml injection ONE (08:22)
[2024-07-22] MEDS ORDERED: LIDOcaine 1%/PF 5ML 10 MG/ML VIAL ONE (08:32)
[2024-07-22] MEDS ORDERED: propofol inj 20 ML IV ONE ×2 (08:32→08:37)
[2024-07-22 08:50] VITALS: BP 107/59; PULSE 70; RESP 17; O2SAT 97
[2024-07-22 09:00] VITALS: BP 128/79; PULSE 81; RESP 19; O2SAT 98
[2024-07-22 09:10] VITALS: BP 138/83; PULSE 69; RESP 16; O2SAT 100
[2024-07-22 09:20] VITALS: BP 133/78; PULSE 65; RESP 12; O2SAT 99
--- NOTE | 2024-07-22 13:17 | OPERATIVE REPORT ---
Operative Report Providers to ~ Date of Procedure: July 22, 2024 Pre-Operative Diagnosis: Bilateral carpal tunnel syndrome Post-Operative Diagnosis SAME as PRE-Op Procedure Performed Bilateral endoscopic carpal tunnel release Surgeon: Alon Jung MD Ag Service Manager None Anesthesiologist: Other (please specify) (Filipe Guzman MD) Type of Anesthesia: Other Findings: Estimated Blood Loss: None Specimen Removed: None Description of Procedure: The patient is a 53-year-old woman with bilateral carpal tunnel syndrome refractory to nonsurgical treatment. Surgery is indicated to relieve symptoms. Risks and benefits were discussed with the patient. Some of the risks of this type of procedure include but are not limited to infection, bleeding, nerve or vessel damage, and failure to improve, she agreed to proceed. She was brought to the operating room where the left arm was 1st prepped and draped in usual manner with a tourniquet on the forearm area. Time-out procedure was observed. Local anesthetic was infiltrated proximal to the planned incision site. The tourniquet was elevated in the arm and the incision was made transversely at the wrist crease ulnar to palmaris longus. A distally based U shaped flap was raised in the forearm fascia. The scope was placed in the carpal canal in line with the ring finger. The cutting blade was deployed up against the underside of the ligament and clearly visualized through the scope. The nerve was protected while the ligament was divided distally to proximally noted by retraction of the edges. The scope was removed the flap was transected and the fascia proximal to the incision was divided a short distance using the blunt scissor tips. The incision was irrigated and closed with nylon suture. The tourniquet was released the hand perfused well. A sterile dressing was then applied. Attention was turned to the right hand which was prepared and anesthetized in a similar manner. A transverse incision was made at the wrist crease ulnar to the palmaris longus. A distally based U shaped flap was raised in the forearm fascia. The scope was placed in the carpal canal in line with the ring finger. The cutting blade was deployed up against the underside of the ligament and clearly visualized through the scope. The nerve was protected while the ligament was divided distally to proximally noted by retraction of the edges. The scope was removed the flap was transected and the fascia proximal to the incision was divided a short distance using the blunt scissor tips. The incision was irrigated and closed with nylon suture. The tourniquet was released the hand perfused well. A sterile dressing was then applied. The patient was taken to the recovery room in stable condition and tolerated the procedure well. ALON JUNG Jr., MD July 22, 2024 13:17
== END 2024-07-22 09:30 | disposition home or self-care (01) ==
LOC: PAS 05:47
PROVIDERS: ATTEND Orthopaedic Surgery Hand Surgery
DX: G56.03 Carpal tunnel syndrome, bilateral upper limbs (principal); G43.909 Migraine, unspecified, not intractable, without status migrainosus; Z79.899 Other long term (current) drug therapy; Z79.82 Long term (current) use of aspirin; Z98.890 Other specified postprocedural states; Z90.710 Acquired absence of both cervix and uterus; Z72.89 Other problems related to lifestyle
CPT/HCPCS: 29848; 36415; 80053; 82948; 85025; 93005; J2003; J2250; J2704; J3490; J7030; J7120; Z7506; Z7512; A4215; A6449; A7000